=== PATIENT | female | born 1965 | race African-American/Black ===

== ENCOUNTER 2021-05-15 15:12 | Inpatient (IN) | payer BC ==
[2021-05-15] VITALS (11 sets, daily range): BP systolic 119–144; BP diastolic 56–79
[~2021-05-15] VITALS: Ht 160 cm; Wt 127.5 kg
--- NOTE | ~2021-05-15 | EMS ---
[facility] [address] [place] [address] EMS Patient Care Report Name: NATASHA MADISON Room #: 170-8 ADM IN M.R.#: [id number] Admission: 05/15/21 Attend Phys: Giovanni Chen MD Discharge: Date of : 61 Report #: [id number] THIS REPORT FOR: //name// Report Transmitted: 05/15/2021 17:05 EMS Care Summary [place], [place]/[facility] Incident [id number] @ 05/15/2021 14:44 Incident Location [address] [facility] Patient NATASHA MADISON Female, 55 Years 1965 Patient Address [facility] [address] [place] [address] Patient History Other, Chief Complaint SOB Disposition Transported Lights/[place] Dispatch Reason Breathing Problem Transported To [facility] Narrative pt found seated in chair in infusion clinic [facility]. pt was at clinic for infusion she takes for her pulmonary condition. as staff walked her back into office, they noticed she was very SOB. they sat her down, took her pulse ox and found it to be 62% on RA. 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 pt is initially refusing transport, states this is not abnormal for her. she eventually agrees to transport. pt and staff want her to go to . pt stand and pivot to cot, pt loaded to unit and suddenly panics and gets up [facility] [address] [place] [address] EMS Patient Care Report Name: NATASHA MADISON Room #: 170-8 ADM IN M.R.#: [id number] Admission: 05/15/21 Attend Phys: Giovanni Chen MD Discharge: Date of : 61 Report #: [id number] off cot in unit. she takes off NRB and refuses to sit for transport. pt will not keep any equipment on. she begins to vomit food and red sputum. able to get pt to sit on bench and decision made to transport to closest facility, [facility], against pt wishes. on arrival, pt c/o being dizzy and going to pass out, refused to get on cot or allow NRB to be put on. move pt to cot and pt immed goes unresponsive and decreased resp effort as she is rolled into ER. frothy liquid from mouth and nose. pt moved to ER cot, report to staff. Initial Vitals @15:03R: 6,GCS: 3, @14:50R: 28,Pain: 0/10,GCS: 15,SpO2: 97, @PTAR: 30,GCS: 15,SpO2: 62, @15:00R: 30,GCS: 15, Assessments @14:50MENTAL:No Abnormalities,SKIN:No Abnormalities,HEENT:Head/Face: No Abnormalities,LUNG SOUNDS:General: No Abnormalities,ABDOMEN:General: No Abnormalities,PELVIS//GI:EXTREMITIES:PULSE:NEURO:No Abnormalities,@15:04MENTAL:Time Oriented,Place Oriented,Person Oriented,Event Oriented,Other,SKIN:No Abnormalities,HEENT:LUNG SOUNDS:General: Vomiting,ABDOMEN:General: Vomiting,PELVIS//GI:EXTREMITIES:PULSE:NEURO: Impression Acute Respiratory Distress (Dyspnea) Procedures @14:55 Stretcher Response: Worse @14:50 ALS Assessment Response: Unchanged @PTAOxygen FlowRate: 15 Device: Non Re-breather Mask (NRB) Response: Unchanged Timeline NUCLEAR REACTOR OPERATOR,Oxygen FlowRate: 15 Device: Non Re-breather Mask (NRB) Response: Unchanged NUCLEAR REACTOR OPERATOR,BP: / M,PULSE: ,RR: 30 R,SPO2: 62 Ox,ETCO2: ,BG: ,PAIN: ,GCS: 15, 14:42,Call Received 14:42,Dispatch Notified 14:44,Dispatched 14:44,En Route 14:48,On Scene 14:50,At Patient 14:50,BP: / M,PULSE: ,RR: 28 R,SPO2: 97 Ox,ETCO2: ,BG: ,PAIN: 0,GCS: 15, 14:50,ALS Assessment,Response: Unchanged 14:55,Stretcher,Response: Worse 15:00,BP: / M,PULSE: ,RR: 30 R,SPO2: Ox,ETCO2: ,BG: ,PAIN: ,GCS: 15, 15:00,Depart Scene 15:03,BP: / M,PULSE: ,RR: 6 R,SPO2: Ox,ETCO2: ,BG: ,PAIN: ,GCS: 3, [address] [address] EMS Patient Care Report Name: NATASHA MADISON Room #: 170-8 ADM IN .R.#: [id number] Admission: 05/15/21 Attend Phys: Giovanni Chen MD Discharge: Date of : 61 Report #: [id number] 15:04,At Destination 15:38,Call Closed Disclaimer v1.1 Copyright 2020 [employer] This EMS Care Summary contains data elements from the applicable legal record (which may be displayed differently). It is designed to provide pertinent information for the following purposes: continuity of care, clinical quality, and state data reporting. The complete legal record is available to ED staff and administrators of the receiving hospital in [employer]'s Patient Tracker. All data is provided "as is."
[2021-05-15 15:59] LABS: ABSOLUTE NEUTROPHILS 7.9 thou/uL (1.4-8.2); BASOPHILS 1.5 % (0.0-2.0); EOSINOPHILS 3.3 % (0.0-3.0); HEMATOCRIT 41.4 % (37.0-47.0); HEMOGLOBIN 12.6 gm/dL (12.0-15.0); LYMPHOCYTES 33.9 % (24.0-44.0); MCH 27.2 pg (26.0-34.0); MCHC 30.4 g/dL (28.0-37.0); MCV 89.6 fL (80.0-100.0); MONOCYTES 8.8 % (1.0-8.0); PLATELET COUNT 312 thou/uL (150-400); POLYS 52.5 % (36.0-66.0); RBC 4.62 mil/uL (4.20-5.00); RDW 15.2 % (10.5-14.5)
[2021-05-15 16:06] LABS: URINE BILIRUBIN NEGATIVE (Negative); URINE BLOOD 2+ (Negative); URINE CLARITY SL CLOUDY; URINE COLOR YELLOW; URINE GLUCOSE-RANDOM* NEGATIVE (Negative); URINE KETONES NEGATIVE (Negative); URINE LEUKOCYTES-REFLEX NEGATIVE (Negative); URINE NITRITE-REFLEX NEGATIVE (Negative); URINE PROTEIN (DIPSTICK) 2+ (Negative); URINE SPECIFIC GRAVITY >= 1.030 (1.005-1.035); URINE UROBILINOGEN 0.2 E.U./dl (0.2-1.0)
[2021-05-15 16:13] LABS: BACTERIA-REFLEX 1-9 Few /HPF (None Seen); CASTS None Seen /LPF (None Seen); CRYSTALS None Seen /LPF (None Seen); SQUAMOUS 0-3 Few /LPF (0-3); URINE RBC 3-10 Few /HPF (NONE SEEN); URINE WBC-REFLEX 0-5 Rare /HPF (0-5)
[2021-05-15 16:19] LABS: HCO3 20.5 mmol/L (22.0-26.0); PCO2 61.4 mmHg (35.0-45.0); PO2 81.2 mmHg (80.0-100.0); sO2 92.1 % (92.0-98.0)
[2021-05-15 16:20] LABS: pH 7.142 (7.360-7.450)
[2021-05-15 16:26] LABS: ANION GAP 18 mmol/L (7-16); BUN 9 mg/dL (7-18); CALCIUM 9.4 mg/dL (8.5-10.1); CHLORIDE 104 mmol/L (98-107); CO2 20 mmol/L (21-32); GLUCOSE 150 mg/dL (74-106); POTASSIUM 4.3 mmol/L (3.5-5.1); SODIUM 142 mmol/L (136-145)
[2021-05-15 16:37] LABS: ALBUMIN 3.6 g/dL (3.4-5.0); DIRECT BILIRUBIN < 0.1 mg/dL (<0.1-0.2); LIPASE 83 U/L (73-393); SGOT 52 U/L (15-37); SGPT 24 U/L (14-59); TOTAL BILIRUBIN 0.8 mg/dL (0.2-1.0); TOTAL PROTEIN 9.1 g/dL (6.4-8.2)
[2021-05-15] MEDS ORDERED: IPRAT-ALBUT 0.5-3 ML IH (18:34)
[2021-05-15] MEDS ORDERED: PROAIR RESPICL90 MCG IH (18:34)
[2021-05-15] MEDS ORDERED: FLEXERIL PO ×2 (18:35→23:48)
[2021-05-15] MEDS ORDERED: NORVASC5 MG PO (18:35)
[2021-05-15] MEDS ORDERED: FUROSEMIDE 40 M40 M1 PO (18:36)
[2021-05-15] MEDS ORDERED: FLUTICASONE-SA1 EAC5 IH (18:36)
[2021-05-15 19:18] LABS: BE(vivo) -2.5 mmol/L (-2 to +3); HCO3 24.1 mmol/L (22.0-26.0); PCO2 49.2 mmHg (35.0-45.0); PO2 132.8 mmHg (80.0-100.0); pH 7.308 (7.360-7.450); sO2 98.4 % (92.0-98.0)
[2021-05-15] MEDS ORDERED: IMURAN 50MG TAB50 M1 PO (23:47)
[2021-05-15] MEDS ORDERED: ADDERALL XR 3030 MG PO (23:47)
[2021-05-15] MEDS ORDERED: REMICADE 1100 MG/VIA INJECTION (23:50)
[2021-05-15] MEDS ORDERED: NIZORAL A-D125 ML TOP (23:50)
[2021-05-15] MEDS ORDERED: SINGULAIR 10 MG10 M1 PO (23:51)
[2021-05-15] MEDS ORDERED: MAGNESIUM250 M1 PO (23:51)
[2021-05-15] MEDS ORDERED: REVIA 50 MG TAB50 MG PO (23:52)
[2021-05-15] MEDS ORDERED: PROTONIX40 M2 PO (23:53)
[2021-05-15] MEDS ORDERED: LYRICA100 MG PO (23:53)
[2021-05-15] MEDS ORDERED: TOPAMAX100 MG PO (23:54)
[2021-05-15] MEDS ORDERED: TOPAMAX 25 MG T25 M1 PO (23:54)
[2021-05-16] VITALS (97 sets, daily range): BP systolic 81–160; BP diastolic 34–88
[2021-05-16 04:08] LABS: ABSOLUTE NEUTROPHILS 8.6 thou/uL (1.4-8.2); BASOPHILS 0.2 % (0.0-2.0); HEMATOCRIT 37.7 % (37.0-47.0); HEMOGLOBIN 11.9 gm/dL (12.0-15.0); LYMPHOCYTES 1.8 % (24.0-44.0); MCH 27.5 pg (26.0-34.0); MCHC 31.5 g/dL (28.0-37.0); MCV 87.2 fL (80.0-100.0); MONOCYTES 2.6 % (1.0-8.0); POLYS 95.4 % (36.0-66.0); RBC 4.33 mil/uL (4.20-5.00); RDW 14.9 % (10.5-14.5)
[2021-05-16 04:09] LABS: PLATELET COUNT 208 thou/uL (150-400)
[2021-05-16 04:14] LABS: ALBUMIN 3.3 g/dL (3.4-5.0); CALCIUM 8.8 mg/dL (8.5-10.1); CREATININE 0.8 mg/dL (0.6-1.0); MAGNESIUM 1.9 mg/dL (1.8-2.4); POTASSIUM 4.1 mmol/L (3.5-5.1); TOTAL BILIRUBIN 0.8 mg/dL (0.2-1.0); TOTAL PROTEIN 8.1 g/dL (6.4-8.2)
[2021-05-16 04:40] LABS: BE(vivo) 0.3 mmol/L (-2 to +3); HCO3 24.4 mmol/L (22.0-26.0); PCO2 37.3 mmHg (35.0-45.0); pH 7.433 (7.360-7.450); sO2 98.8 % (92.0-98.0)
--- NOTE | 2021-05-16 06:34 | NUR ---
ASSUMED CARE OF PATIENT FROM THE ER. PATIENT REMAINS INTUBATED AND SEDATED. SEDATION VACATION VERY EASY TO DO, FOLLOWS COMMANDS AND IS ABLE TO NO YES/NO. LASIX GTT INITIATED PER ORDERS. SIGNIFICANT URINE OUTPUT. BROTHER TO BEDSIDE AFTER PATIENT WAS SETTLED. UPDATED ON POC AND PROGRESS. GIVEN 4 DIGIT CODE AND ICU VISITING POLICIES. POC GOALS ESTABLISHED.
--- NOTE | 2021-05-16 10:51 | EKG ---
[address] [address] ELECTROCARDIOGRAM REPORT Name: NATASHA MADISON Room #: 243- ADM IN M.R.#: [id number] Admission: 05/15/21 Attend Phys: Giovanni Chen MD Discharge: Date of : 61 Report #: [id number] [facility] Test Date: 2021-05-16 Test Time: 08:05:51 Pat Name: NATASHA MADISON Department: Room: 243 P Gender: F Industrial Relations Manager: : 1965 Requested By: Giovanni Chen Order Number: [id number] MD: Abel Multani Measurements Intervals Ophiem Rate: 91 P: 28 NE: 132 QRS: 0 QRSD: 90 T: 130 QT: 387 QTc: 477 Interpretive Statements Sinus rhythm Probable left atrial enlargement Left ventricular hypertrophy Abnormal T, consider ischemia, lateral leads Compared to ECG 05/15/2021 15:20:01 Left ventricular hypertrophy now present T-wave abnormality now present Possible ischemia now present Sinus tachycardia no longer present Intraventricular conduction delay no longer present Early repolarization no longer present Electronically Signed On 05-16-2021 10:50:58 INDUSTRIAL ENGINEERING DIRECTOR by Abel Multani [email or web address] <ELECTRONICALLY SIGNED> By: Abel Multani MD 05/16/21 1050 4 4 Abel Multani MD /EPI
--- NOTE | 2021-05-16 10:59 | EKG ---
[address] [address] ELECTROCARDIOGRAM REPORT Name: NATASHA MADISON Room #: 243-P ADM IN M.R.#: [id number] Admission: 05/15/21 Attend Phys: Giovanni Chen MD Discharge: Date of : 61 Report #: [id number] [facility] ED Test Date: 2021-05-15 Test Time: 15:20:01 Pat Name: NATASHA MADISON Department: Room: 243 Gender: F Occupational Therapy Supervisor: bernardo : 1965 Requested By: Bubba Sharma Order Number: [id number] MD: Abel Multani Measurements Intervals Aniwa Rate: 149 P: 61 AL: 125 QRS: 11 QRSD: 116 T: 238 QT: 305 QTc: 480 Interpretive Statements Sinus tachycardia Nonspecific intraventricular conduction delay Nonspecific repol abnormality, diffuse leads No previous ECG available for comparison Electronically Signed On 05-16-2021 10:58:49 GAMING COMMISSIONER by Abel Multani [email or web address] <ELECTRONICALLY SIGNED> By: Abel Multani MD 05/16/21 1058 1520 1520 Abel Multani MD /EPI
--- NOTE | 2021-05-16 11:48 | NUR ---
Nurse updated Cole on the plan of care and patient condition. He expressed he will be here to visit this afternoon.
[2021-05-16 15:32] LABS: CALCIUM 8.3 mg/dL (8.5-10.1); CREATININE 1.2 mg/dL (0.6-1.0); POTASSIUM 3.3 mmol/L (3.5-5.1)
--- NOTE | 2021-05-16 16:54 | 2DMMODE ---
[facility] [address] [address] [place] [address] 2 D/M-MODE ECHOCARDIOGRAM Name: NATASHA MADISON Room #: 243-P ADM IN M.R.#: [id number] Admission: 05/15/21 Attend Phys: Giovanni Chen MD Discharge: Date of : 61 Report #: [id number] THIS REPORT FOR: cc: FAM - Family physician unknown FAM - Family physician unknown Abel uMltani MD ~ APPROVED REPORT Study performed: 05/16/2021 10:21:17 EXAM: Comprehensive 2D, Doppler, and color-flow Echocardiogram Patient Location: In-Patient Room #: 243 Status: routine BSA: 2.23 HR: 80 bpm Rhythm: NSR Other Information Study Quality: Technically Difficult Technically limited study due to body habitus, patient on ventilator, inability to position patient. Risk Factors: Cardiac Risk Factors: HTN, DM, morbid obesity Indications 2D Dimensions IVSd: 10.42 (7-11mm) LVOT Diam: 19.67 (18-24mm) LVDd: 47.76 mm PWd: 10.68 (7-11mm) Ascending Ao: 24.62 (22-36mm) Left Atrium: 39.85 (27-40mm) Aortic Root: 23.43 mm Aortic Valve AoV Peak Brant.: 1.25 m/s AO Peak Gr.: 6.24 mmHg Pulmonary Valve PV Peak Brant.: 1.04 m/s PV Peak Gr.: 4.35 mmHg [facility] [address] [place] [address] 2 D/M-MODE ECHOCARDIOGRAM Name: NATASHA MADISON Room #: 243-P ADM IN M.R.#: [id number] Admission: 05/15/21 Attend Phys: Giovanni Chen MD Discharge: Date of : 61 Report #: [id number] Tricuspid Valve TR Peak Brant.: 2.42 m/s TR Peak Gr.: 23.52 mmHg Left Ventricle The left ventricle is normal size. Regional wall motion abnormalities cannot be excluded. Borderline concentric left ventricular hypertrophy. Left ventricular systolic function is mild to moderately decreased. LVEF is 40-45%. Right Ventricle The right ventricle is normal size. Atria The left atrium size is normal. The right atrium size is normal. Aortic Valve The aortic valve is normal in structure. No aortic regurgitation is present. There is no aortic valvular stenosis. Mitral Valve The mitral valve is normal in structure. There is no mitral valve regurgitation noted. No evidence of mitral valve stenosis. Tricuspid Valve The tricuspid valve is normal in structure. Mild tricuspid regurgitation. Estimated GWG88-42 mmHG. Pulmonic Valve There is no pulmonic valvular regurgitation. Great Vessels The aortic root is normal in size. IVC is not well visualized. Pericardium There is no pericardial effusion. Critical Notification Critical Value: No <Conclusion> Technically difficult study. The left ventricle is normal size. Borderline concentric left ventricular hypertrophy. [facility] [address] [place] [address] 2 D/M-MODE ECHOCARDIOGRAM Name: NATASHA MADISON Room #: 243-P ADM IN M.R.#: [id number] Admission: 05/15/21 Attend Phys: Giovanni Chen MD Discharge: Date of : 61 Report #: [id number] Left ventricular systolic function is mild to moderately decreased. LVEF is 40-45%. Regional wall motion abnormalities cannot be excluded. The right ventricle is normal size. The left atrium size is normal. The aortic valve is normal in structure. There is no mitral valve regurgitation noted. <ELECTRONICALLY SIGNED> By: Abel Multani MD 05/16/211653 53 53 Abel Multani MD /INF
--- NOTE | 2021-05-16 22:28 | NUR ---
This RN spoke to Dr. Sullivan regarding poor urine output after boluses were complete. Orders received. Will continue to monitor.
[2021-05-17] VITALS (23 sets, daily range): BP systolic 100–134; BP diastolic 42–68
[2021-05-17 02:25] LABS: HEMATOCRIT 31.1 % (37.0-47.0); MCH 27.1 pg (26.0-34.0); MCHC 31.4 g/dL (28.0-37.0); MCV 86.2 fL (80.0-100.0); RBC 3.61 mil/uL (4.20-5.00); RDW 14.9 % (10.5-14.5); WBC 9.1 thou/uL (4.0-11.0)
[2021-05-17 02:34] LABS: CALCIUM 7.6 mg/dL (8.5-10.1); CREATININE 1.2 mg/dL (0.6-1.0); POTASSIUM 3.8 mmol/L (3.5-5.1)
[2021-05-17 02:39] LABS: HEMOGLOBIN 9.8 gm/dL (12.0-15.0)
--- NOTE | 2021-05-17 07:59 | HC ---
[facility] [address] [address] [place] [address] CONSULTATION Name: NATASHA MADISON Room #: 243-P ADM IN M.R.#: [id number] Admission: 05/15/21 Attend Phys: Giovanni Chen MD Discharge: Date of : 61 Report #: [id number] THIS REPORT FOR: cc: FAM - Family physician unknown FAM - Family physician unknown Abel Multani MD ~ DATE OF SERVICE: 05/16/2021 CARDIOLOGY CONSULTATION INDICATION: Cardiac arrest. HISTORY OF PRESENT ILLNESS: The patient is presently intubated and sedated and the history is obtained from her medical records. According to the records, she was not feeling well and drove herself to an urgent care facility. She was observed to be in respiratory distress and was found to have O2 sat of 62%. EMS brought the patient to the ER, presented in pulseless cardiac arrest. CPR was initiated with one round of chest compressions and medications. She had a return of spontaneous pulse and blood pressure. She was unresponsive and was intubated. Shortly thereafter, she became very agitated, requiring sedation. PAST MEDICAL HISTORY: Obtained from medical records includes sarcoidosis, obesity, sleep apnea, fibromyalgia, hypertension and hypercholesterolemia. ALLERGIES: APPARENT ALLERGIES TO GABAPENTIN, MEPERIDINE. MEDICATIONS: Unknown. SOCIAL HISTORY: Unknown. FAMILY HISTORY: Unknown. REVIEW OF SYSTEMS: Unobtainable. PHYSICAL EXAMINATION: VITAL SIGNS: Blood pressure is 130/60, heart rate is 86 beats per minute. GENERAL APPEARANCE: Obese female, intubated and sedated. HEENT: Normocephalic, atraumatic. NECK: No JVD. LUNGS: Diminished breath sounds at the bases. CARDIAC: Distant heart sounds S1, S2 positive. ABDOMEN: Soft, nontender. EXTREMITIES: No cyanosis, trace edema. DIAGNOSTIC DATA: ECG reveals sinus tachycardia at 149 beats per minute, nonspecific ST segment abnormalities. [facility] [address] [place] [address] CONSULTATION Name: NATASHA MADISON Room #: 243-P [facility] IN .Cecilia.#: [id number] Admission: 05/15/21 Attend Phys: Giovanni Chen MD Discharge: Date of : 61 Report #: [id number] LABORATORY VALUES: Troponin is negative. Creatinine is 1.0. Lactic acid was 11.1. Sodium is 142. White count is 15, hemoglobin is 12.6. Initial chest x-ray revealed bilateral infiltrates, rule out CHF versus pneumonitis. CT of the chest revealed multilobar pneumonia. ASSESSMENT AND PLAN: 1. Cardiac arrest, appears to be hypoxia related from bilateral pneumonia. Initial troponin and ECG are unremarkable. Remains hemodynamically stable presently with sinus rhythm. We will need an echo and eventual ischemic evaluation once her respiratory status stabilizes. 2. Respiratory failure/pneumonia, as per Pulmonary. Presently on Lasix, but I do not feel heart failure is contributing to her respiratory status. 3. Hypertension, stable blood pressure. 4. Obesity, needs dietary modification. 5. Sarcoidosis, as per Pulmonary. <ELECTRONICALLY SIGNED> By: Abel Multani MD 05/17/21 0759 0801 0856 Abel Multani MD /nt
--- NOTE | 2021-05-17 10:57 | NUR ---
CENTRAL LINE NONFUNTIONAL. NOTED ON XRAY TO BE KINKED AND FLIPPED INTO IJ. ORDER AND CONSENT OBTAINED TO REPLACE. REPLACED PER HOSPITAL POLICY. LINE TRIMMED TO 25CM AND ADVANCED TO 6CM EXTERNAL. XRAY CONFIRMED LINE IN THE SVC AND RELEASED FOR USE
[2021-05-17 14:53] LABS: HCO3 21.1 mmol/L (22.0-26.0); PCO2 43.4 mmHg (35.0-45.0); PO2 82.6 mmHg (80.0-100.0); sO2 95.2 % (92.0-98.0)
[2021-05-17 14:54] LABS: pH 7.305 (7.360-7.450)
--- NOTE | 2021-05-17 18:03 | NUR ---
Nurse updated patients spokes person throughout the day. His questions were answered. Patient had an exchange of the central line without complications. Patient progressing towards plan of care as evidenced by decreasing ventilator support needs. Plan of care is to continue to monitor ventilator needs, assessments, and treatment requirements.
[2021-05-18] VITALS (24 sets, daily range): BP systolic 108–158; BP diastolic 47–80
[2021-05-18 05:57] LABS: HEMATOCRIT 31.9 % (37.0-47.0); HEMOGLOBIN 9.8 gm/dL (12.0-15.0); MCH 27.2 pg (26.0-34.0); MCHC 30.9 g/dL (28.0-37.0); MCV 88.2 fL (80.0-100.0); RBC 3.62 mil/uL (4.20-5.00); RDW 15.5 % (10.5-14.5); WBC 9.3 thou/uL (4.0-11.0)
[2021-05-18 06:01] LABS: CALCIUM 7.8 mg/dL (8.5-10.1); CREATININE 0.9 mg/dL (0.6-1.0); POTASSIUM 4.9 mmol/L (3.5-5.1)
--- NOTE | 2021-05-18 10:50 | NUR ---
1045: PT'S NIECE, PAKO, AT BEDSIDE
--- NOTE | 2021-05-18 10:50 | NUR ---
1030: RN SPOKE WITH PT'S BROTHER, SHIRLEY, VIA TELEPHONE. UPDATED HIM ON CURRENT POC, AWAITING PHYSICIAN ROUNDS.
--- NOTE | 2021-05-18 11:04 | NUR ---
1105: DISCUSSED POC WITH DR. ESPINOZA AT BEDSIDE. HE ALSO UPDATED PT'S PAKO DAWSON AT BEDSIDE
--- NOTE | 2021-05-18 12:51 | NUR ---
1127: SEDATION PAUSED FOR SPONTANEOUS AWAKENING TRIAL WITH CPAP TRIAL BY RT 1224: CPAP TRIAL FAILED DUE TO ELEVATED RR AND DECREASED SPO2, SEDATION RESTARTED AT HALF THE RATE OF PREVIOUS INFUSION
--- NOTE | 2021-05-18 12:53 | NUR ---
1250: RN NOTIFIED BY IV THERAPY THAT PT'S CXR SUGGESTS CVC HAS FLIPPED UP INTO JUGULAR. WILL NEED TO BE REMOVED. RN TO SPEAK WITH MD IF REPLACEMENT NECESSARY OR IF PIVS ARE SUFFICIENT.
--- NOTE | 2021-05-18 13:02 | NUR ---
1100: INTERDISCIPLINARY ROUNDS OCCURRED, VERBAL ORDER TO DECREASE IVF TO 75MLS/HR ONCE TF INITITATED PER DR. PORTER. TEAM TO DC VANC AND CEFEPIME. WILL ATTEMPT TO PAUSE SEDATION AND COMPLETE CPAP TRIAL.
--- NOTE | 2021-05-18 13:04 | NUR ---
1300: RN DISCUSSED IJ MALPOSITIONING WITH LILY LAWRENCE TO REMOVE IF PIV ACCESS ADEQUATE. RN TO CALL IV THERAPY.
--- NOTE | 2021-05-18 15:40 | NUR ---
PT ADMITTED RELATED TO CARDIAC ARREST AND HYPOXIC RESP FAILRE. CM REVIEWED CHART AND SPOKE WITH CARE TEAM. PT'S CARE WAS DISCUSSED DURING ICU ROUNDS THIS AM. PT IS ON VENT FIO2 AT 30%. CARE TEAM INDICATED THAT PT'S SEDATION IS TO BE DECREASED AND CPAP TIALS ATTEMTPED IF TOLERATED. CM CALLED PT'S BROTHER SHIRLEY WALTERS . HE INDICATED THAT PT RESIDES IN AN APARTMENT ALONE WITH NO STEPS TO ENTER AND NONE INSIDE. 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 CM ASKED IF PT HAD A PCP THAT HE WAS AWARE OF HE INDICATED THAT HOSPITAL HAD REQUESTED RECORDS FROM AND THAT THAT INFO WOULD BE IN THOSE RECORDS. HE INDICATED THAT PT WORKS AT [employer]. PT HAD BEEN GOING TO AN OP INFUSION CLINIC NEAR HERE FOR REMICAID INFUSIONS. NURSE INDICATED THAT PT'S NIECE DIPIKA HAD INDICATED THAT WHEN PT WAS MORE ALERT SHE HAD WRITTEN AND INDICATED THAT SHE WAS INTERESTED IN TRANSFER TO SHE WORKS THERE AND USUALY GETS HER CARE THERE. KRISTI REACHED OUT TO HOSPITALIST AND SHARED THE ABOVE. HE INDICATED THAT ONCE PT IS MEDICALLY STABLE WE CAN REACH OUT REGARDING POSSIBLE TRANSFER. CM FOLLOWING.
--- NOTE | 2021-05-18 17:05 | NUR ---
1545: RN NOTIFIED BY RT, ATTEMPTED TO TRIAL PT ON CPAP AGAIN. SPO2 DROPPED AND RR INCREASED, PT RETURNED TO ASSIST CONTROL AT PREVIOUS SETTINGS.
[2021-05-19] VITALS (17 sets, daily range): BP systolic 119–150; BP diastolic 48–66
[2021-05-19 04:52] LABS: HEMATOCRIT 29.7 % (37.0-47.0); HEMOGLOBIN 9.6 gm/dL (12.0-15.0); MCH 27.5 pg (26.0-34.0); MCHC 32.2 g/dL (28.0-37.0); MCV 85.5 fL (80.0-100.0); RBC 3.47 mil/uL (4.20-5.00); WBC 6.4 thou/uL (4.0-11.0)
[2021-05-19 05:10] LABS: CALCIUM 8.1 mg/dL (8.5-10.1); CREATININE 0.7 mg/dL (0.6-1.0); POTASSIUM 4.4 mmol/L (3.5-5.1)
--- NOTE | 2021-05-19 11:31 | NUR ---
1130: INTERDISCIPLINARY ROUNDS OCCURRED. NO ACUTE CHANGES TO POC. PT FAILING CPAP TRIALS WITH TACHYPNEA AND DECREASED SPO2. FOLLOWING COMMANDS WHEN OFF SEDATION. DISCUSSED PTS DESIRE TO TRANSFER TO , PER DR. PORTER, PT IS MEDICALLY STABLE FOR TRANSFER IF ACCEPTED-CM WORKING ON THIS. NO FAMILY AT BEDSIDE YET THIS SHIFT.
--- NOTE | 2021-05-19 15:17 | NUR ---
CM REVIEWED CHART AND SPOKE WITH NURSE. PT'S CARE WAS DISCUSSED DURING ICU ROUNDS. PT REMAINS SEDATED AND INTUBATED FIO2 30% PEEP 6. CARE TEAM INDICATED THAT PT ISN'T REALLY TOLERATING CPAP TRIALS AT THIS TIME. CM AND NURSE INICATED THAT PT AND FAMILY HAD INDICATED INTEREST IN TRANSFER TO PT IS EMPLOYED THERE AND USUALLY GETS CARES THERE. PT INSURANCE IS OON HERE AND WOULD BE IN NETWORK AT . PULM INIDCATED THAT PT WOULD BE MEDICALLY STABLE FOR TRANSFER TO . KRISTI SPOKE WITH HOSPITALIST AND HE WAS REECPTIVE TO CM REACHING OUT TO TRANSFER CENTER. KRISTI SPOKE WITH RALPH AT [facility]. CM FAXED CLINICAL INFO FOR REVIEW FOR POSSIBLE TRANSFER. CM FOLLOWING.
--- NOTE | 2021-05-19 17:19 | NUR ---
pt accepted for admission at . accepting doc kitty cannon. room [facility] cm gave nurse transfer from and number for report. cm notified pt's niece. nurse calling brother for consent to transfer. orders complete. cm set up amr they will arrive shortly. chart copy made. no other cm intervention indicated. case closed.
--- NOTE | 2021-05-19 17:35 | NUR ---
1720: RN RECEIVED NOTICE PT HAS BEEN ACCEPTED FOR TRANSFER AT . RN CALLED AND RECEIVED OKAY FROM PT'S BROTHER, SHIRLEY. RN PAGED DR. ESPINOZA FOR VERBAL ORDER OF TRANSFER. REPORT CALLED TO DEBBI CHINO AT THE [facility].
--- NOTE | 2021-05-19 18:31 | NUR ---
1820: PT TRANSFERRED FROM [facility]IA [facility] AT THIS TIME. PT LEFT WITH FENTANYL, PROPOFOL, AND VERSED INFUSING FROM CURRENTLY [facility]. [facility] PERSONNEL TRANSFERRED PT TO THEIR OWN VENT WITH SAME SETTINGS PT ON DURING ADMISSION. VSS PRIOR TO TRANSFER. THIS RN CALLED [facility] AND UPDATED RECEIVING RN OF TIME TRANSFERRED.
--- NOTE | 2021-05-19 19:17 | NUR ---
1800: ONE BAG OF PATIENT BELONGINGS INCLUDING PT'S SHIRT, PANTS, AND A SPECIMEN CUP FILLED WITH [facility] SENT WITH EMS DURING TRANSFER TO .
== END 2021-05-19 18:14 | disposition short-term general hospital (02) | DRG 871 ==
LOC: ER 15:12 → EROBS 17:41 → ICU 19:35
PROVIDERS: Internal Medicine Pulmonary Disease; Student in an Organized Health Care Education/Training Program; ADMIT Internal Medicine; ATTEND Internal Medicine
PROC: 02HV33Z Insertion of Infusion Device into Superior Vena Cava, Percutaneous Approach (ICD-10-PCS; 2021-05-15)
PROC: 5A1945Z Respiratory Ventilation, 24-96 Consecutive Hours (ICD-10-PCS; 2021-05-15)
PROC: 5A12012 Performance of Cardiac Output, Single, Manual (ICD-10-PCS; principal; 2021-05-19)
PROC: 0BH17EZ Insertion of Endotracheal Airway into Trachea, Via Natural or Artificial Opening (ICD-10-PCS; principal; 2021-05-19)
DX: A41.9 Sepsis, unspecified organism (principal); J18.9 Pneumonia, unspecified organism; J96.02 Acute respiratory failure with hypercapnia; J96.01 Acute respiratory failure with hypoxia; I46.9 Cardiac arrest, cause unspecified; I42.9 Cardiomyopathy, unspecified; Z68.42 Body mass index [BMI] 45.0-49.9, adult; E66.01 Morbid (severe) obesity due to excess calories; F90.9 Attention-deficit hyperactivity disorder, unspecified type; K21.9 Gastro-esophageal reflux disease without esophagitis; G62.9 Polyneuropathy, unspecified; Z20.822 Contact with and (suspected) exposure to COVID-19
CPT/HCPCS: 10078